=== PATIENT | female | born 1970 | race Caucasian/White ===

== ENCOUNTER 2017-05-17 15:58 | Emergency (ER) | payer MEDICAID | END 2017-05-17 17:16 | disposition home or self-care (01) | LOC: D.ER 15:58 | DX: H66.92 Otitis media, unspecified, left ear (principal); J44.9 Chronic obstructive pulmonary disease, unspecified ==

== ENCOUNTER 2017-09-11 17:55 | Emergency (ER) | payer MEDICAID | END 2017-09-11 19:00 | disposition home or self-care (01) | LOC: D.ER 17:55 | DX: H66.92 Otitis media, unspecified, left ear (principal); J44.9 Chronic obstructive pulmonary disease, unspecified ==

== ENCOUNTER 2017-10-23 15:53 | Emergency (ER) | payer MEDICAID | END 2017-10-23 17:57 | disposition home or self-care (01) | LOC: D.ER 15:53 | DX: K08.89 Other specified disorders of teeth and supporting structures (principal); K02.9 Dental caries, unspecified; J44.9 Chronic obstructive pulmonary disease, unspecified ==

== ENCOUNTER 2019-01-24 08:10 | Emergency (ER) | payer MEDICAID ==
[~2019-01-24] VITALS: Ht 157.5 cm; Wt 68.2 kg
[2019-01-24 08:26] VITALS: Ht 157.5 cm; Wt 68.2 kg
[2019-01-24] MEDS ORDERED: ZYRTEC10 MG PO (08:28)
[2019-01-24] MEDS ORDERED: ALBUTEROL SULF8.5 GM (08:28)
[2019-01-24] MEDS ORDERED: ORAL ANALGESIC9 GM TOPICAL (09:52)
[2019-01-24] MEDS ORDERED: ACETAMINOPHEN500 M1 PO (09:52)
[2019-01-24] MEDS ORDERED: PENICILLIN V P500 MG PO (09:52)
[2019-01-24] MEDS ORDERED: IBUPROFEN800 MG PO (09:52)
[2019-01-24 10:04] VITALS: BP 122/60
== END 2019-01-24 10:04 | disposition home or self-care (01) ==
LOC: D.ER 08:10
DX: K08.89 Other specified disorders of teeth and supporting structures (principal)